=== PATIENT | male | born 1995 | race Caucasian/White ===

== ENCOUNTER 2025-08-08 10:56 | Day surgery (SDC) | payer BC ==
[2025-07-31 11:57] VITALS: BMI 38.2
[2025-08-08] MEDS ORDERED: Lidocaine 2% PF 100 mg/5 ml Syringe ONE (11:26)
[2025-08-08] MEDS ORDERED: PROPOFOL 0 ML ONE (11:26)
[2025-08-08] MEDS ORDERED: Lidocaine 1% PF 5 ML VIAL ONE (11:26)
[2025-08-08] MEDS ORDERED: PROPOFOL 40 ML ONE (12:23)
== END 2025-08-08 13:37 | disposition home or self-care (01) ==
LOC: CSHSDC 10:56
PROVIDERS: ATTEND Surgery
PROC: 0DB68ZX Excision of Stomach, Via Natural or Artificial Opening Endoscopic, Diagnostic (ICD-10-PCS; principal; 2025-08-08)
DX: K29.70 Gastritis, unspecified, without bleeding (principal); K21.9 Gastro-esophageal reflux disease without esophagitis; E66.01 Morbid (severe) obesity due to excess calories; I10 Essential (primary) hypertension
CPT/HCPCS: 88305; 88342; J2003; J2250; J2704; J3010